=== PATIENT | female | born 1990 | race Two or more races ===

== ENCOUNTER 2021-04-13 21:11 | Emergency (ER) | payer OTHER, SELFPAY ==
--- NOTE | ~2021-04-13 | XR_ITS ---
EXAMINATION: XR TOES, LEFT CLINICAL INFORMATION: Pain rule out fracture COMPARISON: None TECHNIQUE: 3 views left first toe FINDINGS: No acute fracture or dislocation is seen. There is a small bony density dorsal to the interphalangeal joint which is well rounded and likely chronic. There is a small density on the AP view and the soft tissue laterally measuring approximately 1 mm. Small foreign body cannot be excluded. No bony erosion. XR/XR toe LT min 2V IMPRESSION: No acute fracture or dislocation. As described a small foreign body cannot be excluded in the soft tissue adjacent to the distal phalanx laterally
[2021-04-13 21:28] VITALS: BP 106/67; PULSE 78; RESP 16; TEMP 36.7; O2SAT 97; BMI 26.5
--- NOTE | 2021-04-13 21:59 | ED.EXTPRO ---
HPI - Extremity Problem General Chief complaint: Extremity Problem Stated complaint: foot injury Time Seen by Provider: 04/13/21 21:57 Source: patient Mode of arrival: ambulatory Limitations: no limitations History of Present Illness MD Complaint: other (toe injury) Onset (ago): minute(s) Location: left and lower extremity (great toe) Quality: aching Radiation: none Relieving factors: nothing Exacerbating factors: weight bearing and palpation Associated symptoms: denies other symptoms Context: other (tripped on floor) Related Data Previous Rx's Medication Instructions Recorded hydrocodone 5 mg-acetaminophen 325 1 tab PO Q6H PRN #8 tab 04/13/21 mg tablet ibuprofen 600 mg tablet 600 mg PO Q6H PRN #30 tab 04/13/21 Allergies Allergy/AdvReac Type Severity Reaction Status Date / Time No Known Allergies Allergy Verified 04/13/21 21:27 [No Known Allergies*] Review of Systems Review of Systems: Constitutional : No Fever, No Chills, Cardiovascular : No Chest Pain, No SOB Respiratory : No Dyspnea Gastrointestinal : No abdominal pain Musculoskeletal : No Joint Swelling Skin : No rash, positive skin laceration Neuro : No Weakness, No Numbness PMFSH Past Medical History Attestation statement: The following information was validated with the patient. Medical History No known health problems Social History Social History (Updated 04/13/21 @ 22:45 by Jaky Carey DO) Patient Tobacco Use Status: Never used Tobacco Advance Directives: No Advance Directives Information Provided: No Physical Exam Vital Signs: Vital Signs: Last Vital Signs Temp 98.1 F 04/13/21 21:28 Pulse 78 04/13/21 21:28 Resp 16 04/13/21 21:28 BP 106/67 04/13/21 21:28 Pulse Ox 97 04/13/21 21:28 Body Mass Index 26.5 Appearance: Alert. Oriented X3. No acute distress. Eyes: Pupils equal, round and reactive to light. ENT: Pharynx normal. Neck: Normal inspection. Neck supple. CVS: Normal heart rate and rhythm. Pulses normal. Respiratory: No respiratory distress. Breath sounds normal. Abdomen: Soft and nontender. Skin: Skin warm and dry. Normal skin color. Normal skin turgor. Extremities: No lower extremity edema. L great toe, superficial avulsion at tip, nail is intact but lifted at the tip, NV intact Neuro: Oriented X 3. No motor deficit. No sensory deficit. Course Course Course Narrative: no clinical FB seen no puncture wound MDM - Extremity (Nontraumatic) MDM Narrative Medical decision making narrative: healthy 31 yo female trip and injury to L great toe with nail injury - NV intact. xrays and wound care to be done Procedures Laceration Laceration 1: Site: lower extremity (left great toe) Side (If applicable): left Size (cm): 1 Description: linear Depth: simple, single layer Local Anesthetic: lidocaine 1% Amount of anesthesia used (mL): 3 Pre-repair: wound explored and irrigated extensively Skin layer closed with: other (dermabond) Discharge Plan Discharge Clinical Impression: Avulsion of nail Patient Disposition: Home, Self-Care Instructions: Nail Avulsion (ED) Additional Instructions: it is okay to shower but otherwise no pools/lakes/beaches. the glue will fall off in 7 days. change dressing every day. monitor for signs of infection - redness, swelling, drainage. est? dilan ducharse, elva por lo dem?s no hay piscinas / cindy / playas. el pegamento se caer? en 7 d?as. cambie el vendaje todos los d?as. vigile los signos de infecci?n: enrojecimiento, hinchaz?n, supuraci?n. Prescriptions: New hydrocodone-acetaminophen 5-325 mg tablet 1 tab PO Q6H PRN (Reason: pain) Qty: 8 RF: 0 ibuprofen 600 mg tablet 600 mg PO Q6H PRN (Reason: pain) Qty: 30 RF: 0 Stand Alone Forms: Work/School Release Print Language: Gibraltarian
[2021-04-13] MEDS: Lidocaine HCl 1 % MPF 5 ML VIAL SUBCUT (22:50)
[2021-04-13] MEDS: Ibuprofen 600 MG TABLET PO (22:59)
== END 2021-04-13 23:04 | disposition home or self-care (01) ==
PROVIDERS: Emergency Provider Emergency Medicine; PCP Internal Medicine
DX: S91.212A Laceration without foreign body of left great toe with damage to nail, initial encounter (principal); W22.8XXA Striking against or struck by other objects, initial encounter; Y93.9 Activity, unspecified; Y92.9 Unspecified place or not applicable; Y99.9 Unspecified external cause status
CPT/HCPCS: 12001; 73660; 99283; 99284

== ENCOUNTER 2021-08-02 13:38 | Emergency (ER) | payer OTHER, SELFPAY ==
[2021-08-02 13:58] VITALS: BP 118/71; PULSE 98; RESP 16; TEMP 36.6; O2SAT 98; BMI 31.8
[2021-08-02 15:02] LABS: COVID-19 Test Negative (Negative)
--- NOTE | 2021-08-02 15:04 | ED_ITS ---
HPI - General Adult General Chief complaint: General Medical Stated complaint: body aches fevers exposed to covid Time Seen by Provider: 08/02/21 14:26 Source: patient Mode of arrival: ambulatory History of Present Illness HPI narrative: 31-year-old female with no significant past medical history presenting to the ED s/p COVID-19 exposure. Patient reports subjective fever, chills, dry cough, and mild SOB. denies sore throat, chest pain, LE edema, ear pain. Patient is fully vaccinated for COVID-19 Onset (ago): day(s) Related Data Previous Rx's Medication Instructions Recorded hydrocodone 5 mg-acetaminophen 325 1 tab PO Q6H PRN #8 tab 04/13/21 mg tablet ibuprofen 600 mg tablet 600 mg PO Q6H PRN #30 tab 04/13/21 Allergies Allergy/AdvReac Type Severity Reaction Status Date / Time No Known Allergies Allergy Verified 04/13/21 21:27 [No Known Allergies*] Review of Systems Review of Systems: Constitutional: +Subj Fever, No Chills ENT/Mouth: No Ear Pain, No Nasal Congestion, No Swallowing Difficulty Cardiovascular: No Chest Pain, + SOB Respiratory: + Cough, No Sputum, No Wheezing Gastrointestinal: No Nausea, No Vomiting, No Diarrhea, No Constipation, No Abdominal pain Genitourinary: No Dysuria, N No Flank Pain Musculoskeletal: No joint pain, No Myalgias, No Joint Swelling Skin: No Skin Lesions, No rash Neuro: No Weakness Yes all other systems are reviewed and are negative PMFSH Past Medical History Attestation statement: The following information was validated with the patient. Medical History No known health problems Social History Social History (Updated 04/13/21 @ 22:45 by Jaky Carey DO) Patient Tobacco Use Status: Never used Tobacco Advance Directives: No Advance Directives Information Provided: No Patient : No Physical Exam Vital Signs: Vital Signs: Last Vital Signs Temp 97.9 F 08/02/21 13:58 Pulse 98 08/02/21 13:58 Resp 16 08/02/21 13:58 BP 118/71 08/02/21 13:58 Pulse Ox 98 08/02/21 13:58 Body Mass Index 31.8 Const: General: cooperative, healthy appearing, no acute distress, well developed and awake Orientation/consciousness: patient oriented x3 Limitations: no limitations HENMT: Head: Yes normal to inspection and Yes atraumatic Ears: hearing grossly normal bilaterally General nose exam: Normal external nose present Face and sinus: Yes normal facial exam Eyes: General: appearance normal, both eyes and all related structures EOM: EOMs intact bilaterally Neck: Neck: Yes normal visual inspection, Yes no lymphadenopathy and Yes no meningeal signs Resp: Effort & Inspection: normal respiratory effort Auscultation: clear to auscultation bilaterally, no rales, no rhonchi and no wheezes Cardio: Rate: regular rate Heart sounds: S1 normal heart sound present and S2 normal heart sound present GI: Inspection: Yes normal to inspection Skin: Rashes: no rashes Wounds: no wounds Neuro: General: patient oriented x3 and no meningeal signs Gait exam (Neuro): Normal gait present Extrem: General: Yes normal to inspection Medical Decision Making MDM Narrative Medical decision making narrative: 31-year-old female with no significant past medical history presenting to the ED s/p COVID-19 exposure. On exam vital signs stable, and ED/nontoxic appearing, lungs CTA. Concern for viral syndrome/COVID- 19. low concern for pneumonia/PE/ACS plan: COVID-19 testing Medical Records Medical records reviewed: Yes I reviewed the patient's medical records. Lab Data Lab results reviewed: Yes I reviewed the patient's lab results. Labs: Lab Results 08/02/21 Range/Units 14:44 COVID-19 ([facility]ANO) Negative (Negative) COVID-19 Clin Com See Note Discharge Plan Discharge Clinical Impression: Acute viral syndrome Patient Disposition: Home, Self-Care Instructions: COVID-19 (Coronavirus Disease 2019) (ED) Additional Instructions: You tested negative for COVID-19 today Consider getting retested in 3-5 days Take Tylenol Motrin at home Rest Stay hydrated Please follow-up with her primary care doctor If symptoms persist or worsen you have fevers unresolved medications, shortness of breath/fever, cough, chest pain please return to the ED Prescriptions: No Action hydrocodone-acetaminophen 5-325 mg tablet 1 tab PO Q6H PRN (Reason: pain) Qty: 8 RF: 0 ibuprofen 600 mg tablet 600 mg PO Q6H PRN (Reason: pain) Qty: 30 RF: 0 Referrals: Viji Calixto MD [Primary Care Provider] - 5 days
== END 2021-08-02 15:37 | disposition home or self-care (01) ==
LOC: HO.ED 15:22
PROVIDERS: Emergency Provider Emergency Medicine; PCP Internal Medicine
DX: B34.9 Viral infection, unspecified (principal); Z20.822 Contact with and (suspected) exposure to COVID-19
CPT/HCPCS: 36415; 87635; 99283

== ENCOUNTER 2022-10-15 21:52 | Emergency (ER) | payer OTHER, SELFPAY ==
--- NOTE | ~2022-10-15 | XR_ITS ---
EXAMINATION: XR KNEE, RIGHT CLINICAL INFORMATION: Injury at work COMPARISON: None TECHNIQUE: 4 views of the knee FINDINGS: No acute fracture or dislocation. Joint spaces are maintained. No joint effusion. Soft tissues are unremarkable. XR/XR knee RT 3V IMPRESSION: * No acute osseous abnormality.
[2022-10-15 22:34] VITALS: BP 120/64; PULSE 95; RESP 20; TEMP 36; O2SAT 98; BMI 30.7
--- NOTE | 2022-10-16 00:39 | ED_ITS ---
HPI - Extremity Injury (Lower) General Chief Complaint: Extremity Injury, Lower Stated Complaint: right knee swollen,pain Time Seen by Provider: 10/16/22 00:30 Source: patient Mode of arrival: ambulatory Limitations: no limitations History of Present Illness HPI Narrative: 32-year-old female healthy here with right knee pain. Patient reports she used her right leg to lift heavy box yesterday while working. Since then she has had pain which is worsened with weight-bearing. No numbness/weakness/tingling of the extremity. No previous injury. Related Data Previous Rx's Medication Instructions Recorded hydrocodone 5 mg-acetaminophen 325 1 tab PO Q6H PRN pain #8 tabs 04/13/21 mg tablet ibuprofen 600 mg tablet 600 mg PO Q6H PRN pain #30 tabs 04/13/21 ibuprofen 600 mg tablet 600 mg PO Q8H PRN pain #20 tabs 10/16/22 Allergies Allergy/AdvReac Type Severity Reaction Status Date / Time No Known Allergies Allergy Verified 10/15/22 22:39 [No Known Allergies*] Review of Systems Review of Systems: Yes all other systems are reviewed and are negative Constitutional: Constitutional: Reports no additional constitutional complaints, Denies body ache(s), Denies chills, Denies fever(s), Denies headache(s) and Denies weakness Eyes: Eyes: Reports no additional eye complaints and Denies change in vision ENT: Reports system reviewed and no additional complaints, except as documented, Denies dizziness, Denies headache(s), Denies nasal congestion, Denies nasal discharge and Denies neck pain Cardiovascular: Cardiovascular: Reports no additional cardiovascular complaints, Denies chest pain, Denies leg edema and Denies dyspnea Respiratory: Respiratory: Reports no additional respiratory complaints, Denies cough and Denies dyspnea Gastrointestinal: Gastrointestinal: Reports no additional gastrointestinal complaints, Denies abdominal pain, Denies diarrhea, Denies nausea and Denies vomiting Genitourinary: Genitourinary: Reports no additional female genitourinary complaints and Denies urinary incontinence Musculoskeletal: Musculoskeletal: Reports no additional musculoskeletal complaints, Denies back pain, Reports arthralgias, Denies joint swelling, Denies limited range of motion, Denies neck pain, Denies numbness and Denies tingling Integumentary/Breasts: Skin/Breast: Reports system reviewed and no additional complaints, except as docu and Denies rash Neurologic: Reports system reviewed and no additional complaints, except as documented, Denies Abnormal speech present, Denies dizziness, Denies headache(s), Denies numbness, Denies tingling and Denies weakness PMFSH Past Medical History Attestation statement: The following information was validated with the patient. Source: old records reviewed and nursing notes reviewed Medical History No known health problems Social History Social History Patient Tobacco Use Status: Never used Tobacco Advance Directives: No Advance Directives Information Provided: No Physical Exam Vital Signs: Vital Signs: Last Vital Signs Temp 96.8 F 10/15/22 22:34 Pulse 95 10/15/22 22:34 Resp 20 10/15/22 22:34 BP 120/64 10/15/22 22:34 Pulse Ox 98 10/15/22 22:34 O2 Del Method 10/15/22 22:34 BMI result Body Mass Index 30.7 Const: General: cooperative, healthy appearing, comfortable and no acute distress Orientation/consciousness: patient oriented x3 Limitations: no li mitations HEENT: Head: Yes normal to inspection Ears: hearing grossly normal bilaterally General nose exam: Normal external nose present Face and sinus: Yes normal facial exam Mouth: Normal oral and palatal mucosa present Throat: Yes posterior oropharynx normal Eyes: General: appearance normal, both eyes and all related structures Pupils: Equal, round and reactive pupils present Neck: Neck: Yes normal visual inspection Chest: Chest palpation & inspection: normal inspection of the chest Resp: Effort & Inspection: normal respiratory effort Auscultation: clear to auscultation bilaterally Cardio: Rate: regular rate Rhythm: regular rhythm Peripheral pulses: Peripheral pulses 2+ throughout GI: Inspection: Yes normal to inspection Palpation (GI): Soft to palpation and nontender Auscultation: normal bowel sounds Back/Spine/Pelvis: Thoracic/Lumbar Spine: thoracic and lumbar spine normal to inspection Skin: General skin exam: no rashes or lesions noted Neuro: General: patient oriented x3, no focal motor deficits and normal sensation to monofilament Cranial nerves: Yes Equal, round and reactive pupils present Cognition (Neuro): normal cognition Speech: No Abnormal speech present Gait exam (Neuro): Normal gait present Motor exam (neuro): 5/5 motor strength present throughout Extrem: Other: There is pain over the right anterior knee to palpation. There is no tenderness to the posterior knee, lateral or medial aspect. There is no swelling. Full range of motion of the knee. No ligamental laxity. Neurovascularly intact distally General: Yes normal to inspection Course Course Course Narrative: X-ray shows no acute finding. Likely sprain. Patient we given Leon wrap and given crutches for home. Reviewed rice. Reviewed worrisome signs and symptoms of when to return to the emergency room. Comfortable plan for discharge home. Medical Decision Making Medical Decision Making MDM Narrative: 32-year-old female here with right knee pain after a lifting injury yesterday while working. Will check x-rays Differential Diagnosis Differential Diagnoses: The differential diagnosis associated with the presentation includes Likely sprain Low concern for fracture Independent Interpretation I performed an independent interpretation of an: Plain X-Ray Interpretation: I independently reviewed the x-ray of the right knee and agree with radiologist reading Radiology Impression Discussion of test interpretation with radiology: I have reviewed the radiologist's reading. Radiologist Impression: [place] [id number] XRay Report Signed Patient: Linh Woods MR#: [id number] : 1990 Acct:[id number] Age/Sex: 32 / F ADM Date: 10/15/22 Loc: .ED Attending Dr: Ordering Physician: Generic ED Physician Date of Service: 10/15/22 Procedure(s): XR knee RT 3V Accession Number(s): [id number] cc: Generic ED Physician~ EXAMINATION: XR KNEE, RIGHT? CLINICAL INFORMATION: Injury at work? COMPARISON: None? TECHNIQUE: 4 views of the knee FINDINGS: No acute fracture or dislocation. Joint spaces are maintained.? No joint effusion. Soft tissues are unremarkable. XR/XR knee RT 3V IMPRESSION: ? *? No acute osseous abnormality. Procedures Procedure Narrative Procedure Narrative: leon wrap, crutches Discharge Plan Discharge Clinical Impression: Right knee sprain Patient Disposition: Home, Self-Care Instructions: Knee Sprain (ED), Crutch Instructions (ED) Additional Instructions: Your x-ray show no fracture. You have a sprain in your knee. Rest, ice, elevate. Use the wrap and crutches for the next few days. Follow-up with work connection [phone] [place] radiograf?a no muestra fractura. Tienes un esguince en la rodilla. Descansar, hielo, elevar. Utilice el vendaje y las muletas lee los pr?ximos d?as. Seguimiento con conexi?n laboral [phone] Prescriptions: New ibuprofen 600 mg tablet 600 mg PO Q8H PRN (Reason: pain) Qty: 20 0RF No Action hydrocodone-acetaminophen 5-325 mg tablet 1 tab PO Q6H PRN (Reason: pain) Qty: 8 0RF ibuprofen 600 mg tablet 600 mg PO Q6H PRN (Reason: pain) Qty: 30 0RF Stand Alone Forms: Work/School Release
--- NOTE | 2022-10-16 00:45 | PC.NURSE ---
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
== END 2022-10-16 00:47 | disposition home or self-care (01) ==
PROVIDERS: Emergency Provider Emergency Medicine
DX: S83.91XA Sprain of unspecified site of right knee, initial encounter (principal); X50.0XXA Overexertion from strenuous movement or load, initial encounter; X50.3XXA Overexertion from repetitive movements, initial encounter; Y93.9 Activity, unspecified; Y92.9 Unspecified place or not applicable; Y99.0 Civilian activity done for income or pay; Z79.899 Other long term (current) drug therapy
CPT/HCPCS: 73562; 99282; 99284

== ENCOUNTER 2022-11-02 10:56 | Outpatient (REF) | payer OTHER, SELFPAY ==
--- NOTE | ~2022-11-02 | XR_ITS ---
EXAMINATION: XR KNEE AP STANDING XR KNEE, RIGHT CLINICAL INFORMATION: Pain COMPARISON: Right knee radiograph from 10/15/2022 TECHNIQUE: Single view of the right knee single view of the bilateral standing knees FINDINGS: No acute visible fracture or dislocation. Joint spaces and alignment are maintained. Soft tissues are unremarkable. XR/XR knee RT 1V IMPRESSION: No acute visible fracture or dislocation.
--- NOTE | ~2022-11-02 | XR_ITS ---
EXAMINATION: XR KNEE AP STANDING XR KNEE, RIGHT CLINICAL INFORMATION: Pain COMPARISON: Right knee radiograph from 10/15/2022 TECHNIQUE: Single view of the right knee single view of the bilateral standing knees FINDINGS: No acute visible fracture or dislocation. Joint spaces and alignment are maintained. Soft tissues are unremarkable. XR/XR knee standing BI IMPRESSION: No acute visible fracture or dislocation.
== END 2022-11-02 10:57 | disposition home or self-care (01) ==
LOC: HO.HOSX 10:56
PROVIDERS: Visit Provider Physician Assistant
DX: S83.8X1A Sprain of other specified parts of right knee, initial encounter (principal)
CPT/HCPCS: 73560; 73565; 99202

== ENCOUNTER 2022-11-06 09:34 | Outpatient (REF) | payer OTHER, SELFPAY ==
[2022-11-06 11:14] LABS: Hematocrit 41.4 % (37.0-47.0); Hemoglobin 13.3 g/dl (12.0-16.0); Mean Corpuscular HGB Conc 32.1 g/dl (31.0-35.0); Mean Corpuscular Hemoglobin 30.7 pg (27.0-33.0); Mean Corpuscular Volume 95.6 fL (80.0-98.0); Mean Platelet Volume 11.5 fL (9.4-12.3); Platelet Count 274 X10*3/uL (160-400); Red Blood Count 4.33 X10*6/uL (4.20-5.50); Red Cell Distribution Width 13.2 % (11.0-16.0); White Blood Count 7.7 X10*3/uL (4.8-10.8)
[2022-11-06 11:32] LABS: Anion Gap 15 (12-20); Blood Urea Nitrogen 8 mg/dL (9-16); Calcium 9.5 mg/dL (8.4-10.2); Carbon Dioxide 25 mmol/L (22-29); Chloride 105 mmol/L (96-108); Estimated Glomerular Filt Rate > 60; Glucose Random 84 mg/dL (60-115); Potassium 4.2 mmol/L (3.3-5.1); Sodium 141 mmol/L (135-145)
[2022-11-06 11:45] LABS: TSH reflex Free T4 2.56 uIU/mL (0.32-4.0); Vitamin D 25-OH Total 5.6 ng/mL (>30)
== END 2022-11-06 09:35 | disposition home or self-care (01) ==
LOC: HO.LAB 09:34
PROVIDERS: PCP Nurse Practitioner Family; Visit Provider Nurse Practitioner Family
DX: Z13.0 Encounter for screening for diseases of the blood and blood-forming organs and certain disorders involving the immune mechanism (principal); Z13.21 Encounter for screening for nutritional disorder; Z13.29 Encounter for screening for other suspected endocrine disorder
CPT/HCPCS: 36415; 80048; 82306; 84443; 85027

== ENCOUNTER → 2022-11-10 13:57 | Outpatient (REF) | payer OTHER, SELFPAY | LOC: HO.SL 13:57 | PROVIDERS: Visit Provider Nurse Practitioner Family | DX: Z13.89 Encounter for screening for other disorder (principal) ==

== ENCOUNTER → 2022-11-20 11:05 | Outpatient (REF) | payer OTHER, SELFPAY | LOC: HO.SL 11:05 | PROVIDERS: Visit Provider Nurse Practitioner Family | DX: G47.33 Obstructive sleep apnea (adult) (pediatric) (principal); R06.83 Snoring | CPT/HCPCS: 95806 ==

== ENCOUNTER 2022-12-07 17:00 | Outpatient (RCR) | payer OTHER, SELFPAY ==
--- NOTE | 2022-11-12 18:20 | MHC.PT.EP ---
[facility] [place] Office [place] Office [place] Office [address] [phone] F: [phone] F: [phone] F: [phone] F: [phone] Physical Therapy Plan of Care Date of Evaluation: Date of Surgery: Diagnosis: RIGHT knee sprain (MD Dx) R knee medial sprain, questionable internal derangement and meniscus injury (PT Dx) Assessment: Patient is a Frisian Speaking 32 y.o. female who is referred to PT by Jazmín Snyder MD with Dx of RIGHT knee sprain. PT diagnosis is R knee medial sprain, questionable internal derangement and meniscus injury due to BOZENA and reported sxs of instability. She may benefit from MRI for further evaluation, but she also has been demonstrating significant compensations over a month duration. Patient impairments include pain, swelling, limited ROM, weakness, antalgic gait. Patient current functional limitations are walking, standing more than 30 mins, stair use, bending. Patient will benefit from skilled PT to address aforementioned impairments and functional limitations to meet established goals. Frequency and Duration: The patient will be seen 2x/week for 4 weeks Short Term Goals: 2 weeks Patient demonstrates consistency and independence with HEP to self manage symptoms. Patient presents with increased R knee extension 0 degrees to normalize gait pattern with LRAD. 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 Patient presents with increased R knee flexion 4+/5 to be able to perform reciprocal stairs. Treatment Plan: Modalities to reduce pain, spasms and effusion. Manual therapy to restore motion and function. Therapeutic exercise to improve strength and flexibility. Neuromuscular re-education for posture and balance. Therapeutic activities to return to functional activities of daily living. Electronically signed by: Wilson Engle, PT, DPT Please sign and return to therapist. Thank you for your referral.
--- NOTE | 2023-01-19 14:56 | MHC.PT.DC ---
[facility] [place] Office [place] Office [place] Office [address] [facility] [phone] F: [phone] F: [phone] F: [phone] F: [phone] Physical Therapy Discharge Report Diagnosis: RIGHT knee sprain (MD Dx) R knee medial sprain, questionable internal derangement and meniscus injury (PT Dx) Date of Surgery: Date of Evaluation: 11/12/22 Date of Discharge: 01/19/23 Treatments to Date: 3 Cancellations to Date: 1 No Shows to Date: 4 Discharge Status: Visit Non-compliance Discharge Summary: Patient ceased attending PT on her own accord and is therefore discharged from PT at this time for visit non-compliance. Electronically signed by: Wilson Engle, PT, DPT Please sign and return to therapist. Thank you for your referral.
== END 2023-01-19 14:56 | disposition home or self-care (01) ==
LOC: HO.PT 17:00
PROVIDERS: PCP Nurse Practitioner Family; Visit Provider Nurse Practitioner Family
DX: S83.91XA Sprain of unspecified site of right knee, initial encounter (principal)
CPT/HCPCS: 97110; 97140; 97161

== ENCOUNTER → 2022-12-17 09:21 | Outpatient (BNVA) | payer OTHER, SELFPAY | PROVIDERS: PCP Nurse Practitioner Family; Visit Provider Hospitalist | DX: G47.33 Obstructive sleep apnea (adult) (pediatric) (principal); R06.00 Dyspnea, unspecified; J30.9 Allergic rhinitis, unspecified; T78.40XA Allergy, unspecified, initial encounter | CPT/HCPCS: 99202 ==

== ENCOUNTER 2023-06-04 14:16 | Outpatient (AMB) | payer OTHER, SELFPAY ==
[2023-06-04 14:42] VITALS: PULSE 80; O2SAT 98; BMI 33.9
--- NOTE | 2023-06-04 14:42 | MHC.OFFVIS ---
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 She complains of headaches in the morning. Her [place] score is elevated 14/24. She always struggles during the daytime. She now has a significant other that has been complaining that she has apneic episodes and she worries went when the patient stops breathing. The patient has never had a sleep study before. She know she has large tonsils. She was thinking of having them removed. In addition to that she cannot breathe through her nose. Her nose is very congested. She had trauma to her nose and after that is very hard to breathe. She breathes through her mouth. The patient also has significant congestion around this time. She has never had allergy testing. She also complains of dyspnea on exertion. Even doing minor sure she gets short of breath with activity. She denies any wheezing denies any chest congestion. She has not had any imaging studies at her breathing studies. She has never used a rescue inhaler. She does have animals in the home. She has a dog and a cat sometimes they do go into the bedroom. There may be some mold in the house as well. As far as the work related exposures she is exposed to dust but nothing as far as fumes or chemicals. The patient does not smoke cigarettes or vape although she smokes marijuana once in a while. 06/04/2023 the patient is here for a pulmonary follow-up visit. The patient has been struggling with sleep apnea. She continues to have significant daytime drowsiness with an elevated [place] score of 12/24. She has not been able to get supplies from the [facility]. she will get in touch with them make necessary arrangements. In the meantime she should continue to clean her equipment as good as possible I did give her some instructions on how to do that effectively. The patient understands that she does have significant sleep apnea and she needs to use her CPAP. Meantime the short-acting beta agonist has been helpful but she continues use it several times a week. I do believe the patient needs to be on a maintenance inhaler. I will send her Symbicort to the pharmacy. She did not have any of the allergy testing done as requested. Therefore we do not have the ability to look into the possibility of biologics. Therefore, will go ahead and start on Symbicort and the patient will call the [employer] company in order to make arrangements to get supplies. In the meantime she will continue to use her CPAP more than 4 hours a night. [facility] Medical History (Updated 06/04/23 @ 14:55 by Franklyn Kinney MD) Dyspnea NASRA (obstructive sleep apnea) Allergies Chronic allergic rhinitis Obstructive sleep apnea hypopnea, severe Migraines Chronic fatigue Anxiety and depression Vitamin D deficiency Impaired glucose tolerance Snoring No known health problems Family History (Updated 10/19/22 @ 14:15 by DENTON Meehan) Mother HTN (hypertension) Depression Cardiomegaly Father Diabetes Brother HTN (hypertension) Social History Household Members: Children Housing: Apartment Alcohol intake: never Patient Tobacco Use Status: Never used Tobacco Substance Use Type: Marijuana service: No Current occupational status: employed Cognitive needs: No Hearing needs: No Vision needs: No Review of Systems Const Denies chills, Reports daytime sleepiness, Denies fatigue, Denies fever(s), Reports headache(s), Denies poor appetite, Reports snoring and Reports stops breathing during sleep Eyes Denies no additional complaints ENT Reports Normal hearing present, Reports headache(s), Reports nasal congestion, Reports nasal discharge and Reports nasal obstruction Card Denies chest pain, Denies syncope, Denies rapid heart rate, Denies dyspnea, Reports dyspnea on exertion and Reports paroxysmal nocturnal dyspnea Resp Denies cough, Denies dyspnea, Reports dyspnea on exertion and Reports snoring GI Denies change in stool character, Denies constipation, Denies diarrhea, Denies nausea and Denies vomiting Denies urinary frequency, Denies dysuria and Denies urinary urgency Skin/Breast Denies rash Neuro Reports Normal hearing present, Denies confusion, Denies syncope and Reports headache(s) Psych Denies confusion Endo Denies fatigue Physical Exam Vital Signs: Last Vital Signs Pulse 80 06/04/23 14:42 Pulse Ox 98 06/04/23 14:42 Oxygen Delivery Method Room Air 06/04/23 14:42 BMI result Body Mass Index 33.9 Const General: No confusion Orientation/consciousness: No confusion HEENT Head: Yes normal to inspection, Yes normocephalic and Yes atraumatic General nose exam: Abnormal mucous membranes and turbinates present erythematous (with obstruction and some bleeding) bilateral Eyes General: appearance normal, both eyes and all related structures Resp Effort & Inspection: normal respiratory effort Auscultation: diminished lung sounds Cardio Rate: regular rate GI Palpation (GI): Soft to palpation General: Yes no CVA tenderness Back/Spine/Pelvis Back: no CVA tenderness Skin Lesions: no lesions Rashes: no rashes Neuro General: No confusion Cranial nerves: Yes Normal hearing present Extrem General: Yes no clubbing, cyanosis or edema Assessment & Plan Assessment & Plan (1) Chronic allergic rhinitis: Code(s): J30.9 - Allergic rhinitis, unspecified (2) Allergies: Code(s): T78.40XA - Allergy, unspecified, initial encounter Qualifiers: Encounter type: subsequent encounter Qualified Code(s): T78.40XD - Allergy, unspecified, subsequent encounter (3) NASRA (obstructive sleep apnea): Code(s): G47.33 - Obstructive sleep apnea (adult) (pediatric) (4) Dyspnea: Code(s): R06.00 - Dyspnea, unspecified Qualifiers: Dyspnea type: dyspnea on exertion Qualified Code(s): R06.09 - Other forms of dyspnea Plan continue APAP with full face mask. Will DME to get supplies start Symbicort BID azelastine nasal spray continue OZZY as needed F/U in 4-6 months with her CPAP machine Medications: New budesonide-formoterol 160-4.5 mcg/actuation (Symbicort) 2 puffs inhalation BID 30 days 10.2 grams 11RF J44.9 - Chronic obstructive pulmonary disease, unspecified Refilled albuterol sulfate 90 mcg/actuation 2 inhalations inhalation Q6H 30 days PRN 18 grams 12RF shortness of breath or wheezing J44.9 - Chronic obstructive pulmonary disease, unspecified Coding Level of Care Code Est Pt Level 4 ([id number]) Diagnoses Chronic allergic rhinitis J30.9 Allergy, subsequent encounter T78.40XD Encounter type: subsequent encounter NASRA (obstructive sleep apnea) G47.33 Dyspnea on exertion R06.09 Dyspnea type: dyspnea on exertion Time Spent (min) 16
== END 2023-06-04 15:06 | disposition home or self-care (01) ==
PROVIDERS: PCP Nurse Practitioner Family; Visit Provider Hospitalist
DX: J30.9 Allergic rhinitis, unspecified (principal); T78.40XD Allergy, unspecified, subsequent encounter; G47.33 Obstructive sleep apnea (adult) (pediatric); R06.09 Other forms of dyspnea
CPT/HCPCS: 99214

== ENCOUNTER → 2023-06-04 14:16 | Outpatient (BNVA) | payer OTHER, SELFPAY | PROVIDERS: PCP Nurse Practitioner Family; Visit Provider Hospitalist | DX: G47.33 Obstructive sleep apnea (adult) (pediatric) (principal); R06.09 Other forms of dyspnea; J30.9 Allergic rhinitis, unspecified; T78.40XD Allergy, unspecified, subsequent encounter | CPT/HCPCS: 99212 ==